=== PATIENT | male | born 1970 | race Caucasian/White ===

== ENCOUNTER 2017-04-07 01:43 | Day surgery (SDC) | payer OTHER ==
[~2017-04-07] VITALS: Ht 175.3 cm; Wt 133.1 kg
[2017-04-07] VITALS (11 sets, daily range): BP systolic 109–155; BP diastolic 56–96; PULSE 49–58; RESP 12–16; O2SAT 95–97
[~2017-04-07 01:43] MED LIST: LORA-302 PO; VARE0.5T PO
[2017-04-07] MEDS ORDERED: ASPI325T32 PO (09:07)
[2017-04-07 09:20] LABS: INR 0.94 ratio
[2017-04-07] MEDS ORDERED: 0.9% Sodium Chloride 1,000 ML IV ONE (09:25)
--- NOTE | 2017-04-07 09:28 | NUR ---
Admitted today as an outpatient for a heart angiogram to evaluate heart arteries and function for documented aortic stenosis/bi-cuspid aortic stenosis specifically.Dr Villatoro notified patient is here in [place] - family has a few questions prior to the procedure. NSB with no ectopy and no pain. Patient is here today with his , "Kailey" - both patient and are ready for today's procedure. Follow up scheduled with Dr Farr for a consult for aortic valve repair.
[2017-04-07] MEDS ORDERED: Heparin 1,000 Units/500 mL NS Premix IV ONE (09:51)
[2017-04-07] MEDS ORDERED: fentaNYL-PF 50 mCg/mL 2 mL Inj ONE (09:51)
[2017-04-07] MEDS ORDERED: Heparin 10,000 Unit/1,000 mL NS Premix IV ONE (09:51)
[2017-04-07] MEDS ORDERED: Nitroglycerin 50,000 mcg/250 mL D5W Premix IV ONE (10:01)
[2017-04-07] MEDS ORDERED: Verapamil 2.5 mg/mL 2 mL Inj ONE (10:01)
[2017-04-07] MEDS ORDERED: Heparin 1,000 Unit/mL 10 mL Inj ONE (10:01)
[2017-04-07] MEDS ORDERED: 0.9% Sodium Chloride 1,000 ML IV PRN (11:14)
[2017-04-07] MEDS ORDERED: 0.9% Sodium Chloride 250 ML IV PRN (11:14)
[2017-04-07] MEDS ORDERED: HYDROcodone-APAP 5-325 mg Tablet PO PRN (11:15)
[2017-04-07] MEDS ORDERED: Ondansetron 2 mg/mL 2 mL Inj IVPUSH PRN (11:15)
[2017-04-07] MEDS ORDERED: Atropine 1 mg/10 mL (Code) Syringe IVPUSH PRN (11:15)
--- NOTE | 2017-04-07 11:23 | PCM.CVCATH ---
Cardiac Cath Report Date of Service Apr 07, 2017 Primary Indication Severe bicuspid aortic stenosis with significant calcification and recent history of retinal arterial embolic event. Procedure 1. Selective coronary angiogram Vascular Access Right radial artery Procedure Details The patient was brought to the cardiac catheterization lab in the fasting state. Patient was laid supine on the cardiac catheterization table and the right forearm was prepped and draped in the usual sterile fashion. One percent Xylocaine was infiltrated over the right radial artery. Vascular access was then achieved under ultrasound guidance. Guide wire was used to advance the catheter through the sheath and up into aortic sinuses. After coronary angiography was completed, guide wire was advanced through the catheter ahead of the tip of the catheter and the guide wire along with the catheter were pulled together out of the sheath. Estimated blood loss: 5 mL Total fluoroscopy time: 6.4 minutes Total fluoroscopy dosage: 1294 mGy Total contrast: 55 mL Findings 1. Hemodynamics: The aortic systemic pressure was 126/77 mmHg. 2. Selective coronary angiography: A. Left main: There artery has no evidence of significant disease. It bifurcates into the left anterior descending and left circumflex arteries. B. Left anterior descending artery: The left anterior descending artery has no evidence of significant disease. It provides one large diagonal artery which has no evidence of significant disease. C. Left circumflex artery: This is a codominant artery. This artery has no evidence of significant disease. D. Right coronary artery: This is a codominant artery. This artery has no evidence of significant disease. Miscellaneous: The aortic valve is easily visualized due to significant calcification. Complications There were no periprocedural complications identified. Summary 1. Normal coronaries angiographically. 2. Significant calcification of aortic valve. Recommendations The patient has an appointment with Dr. Ezio Farr on April 17. copies to: Ezio Farr MD; River Quesada MD, Oscar J MD Apr 07, 2017 11:23
--- NOTE | 2017-04-07 15:07 | NUR ---
Post heart cath 2 hour recovery completed in [place]. TR band with 13 cc's of air removed over 35 minutes. No pain no hematoma. Reviewed of discharge instructions with and patient.
[2017-04-07] MEDS ORDERED: Sodium Chloride LOK Flush 10 mL Syringe IVFLUSH SCH (16:30)
== END 2017-04-07 23:59 | disposition home or self-care (01) ==
LOC: SOUO 01:43
PROVIDERS: ATTEND Internal Medicine Cardiovascular Disease
DX: Q23.0 Congenital stenosis of aortic valve (principal); I35.0 Nonrheumatic aortic (valve) stenosis; I10 Essential (primary) hypertension; E66.9 Obesity, unspecified; G45.3 Amaurosis fugax
CPT/HCPCS: 36415; 80048; 85610; 93005; 93454; 99152; 99153; C1729; C1769; C1894; J1644; J2250; J3010; J7030; Q9967

== ENCOUNTER → 2017-05-12 | Day surgery (SDC) | payer OTHER ==
[~2017-05-12] VITALS: Ht 180.3 cm; Wt 118.0 kg
[~2017-05-12] MED LIST changes: +0.9% Sodium Chloride 1,000 ML IV ONE; +0.9% Sodium Chloride 1,000 ML IV SCH; +ASPI-973 PO; +ASPI325T32 PO; +Atropine 1 mg/10 mL (Code) Syringe ONE; +HYDROcodone-APAP 5-325 mg Tablet PO PRN; +METO50TA3 PO; +Methohexital 10 mg/mL 50 mL Inj IV ONE; +Methohexital 10 mg/mL 50 mL Inj ONE; +NICO1PAT35 TD; +OXYC1TAB24 PO; +Ondansetron 2 mg/mL 2 mL Inj IVPUSH PRN; +WARF5TAB7 PO
[2017-05-12 10:40] VITALS: BP 99/62; PULSE 145; RESP 16; O2SAT 94
[2017-05-12 10:48] LABS: BASOPHILS % (AUTO) 0.5 % (0-3); EOSINOPHILS % (AUTO) 2.5 % (0-5); Mean Corpuscular Hemoglobin 29.2 pg (27.0-35.0); NEUTROPHILS % (AUTO) 66.3 % (40-74); Platelet Count 640 bil/L (150-400)
[2017-05-12 11:07] LABS: INR 2.02 ratio
[2017-05-12 11:26] VITALS: BP 107/85; PULSE 147; RESP 16; O2SAT 94
[2017-05-12 11:29] VITALS: BP 130/78; PULSE 95; RESP 16; O2SAT 95
[2017-05-12 11:32] VITALS: BP 116/78; PULSE 93; RESP 16; O2SAT 95
[2017-05-12 11:37] VITALS: BP 110/73; PULSE 92; RESP 16; O2SAT 98
--- NOTE | 2017-05-12 11:42 | PCM.PROC ---
Procedure Note Date of Service: May 12, 2017 Pre Procedure Diagnosis: Atrial flutter with RVR Post Procedure Diagnosis: Normal sinus rhythm Procedure: Electrical cardioversion Provider and Veneer Marker: Shemar Villatoro Jr, M.D. Brian, RN Indication for Procedure: Postoperative Atrial flutter with RVR Procedural Analgesia: Brevital 50 mg IV Versed 1 mg IV Procedure Details: A timeout was performing the correct patient procedure were verified. Patient was placed on continuous cardiac monitoring and continuous pulse oximetry. Supplemental oxygen was administered via nasal cannula. Defibrillator pads were placed in the anterior and posterior fashion. The pads were connected to a biphasic defibrillator which was placed in sync mode. After appropriate level of sedation was achieved, synchronize cardioversion was performed at 50 joules with access for conversion to sinus rhythm. Post Procedure Plan: 1 Continue with metoprolol tartrate 50 mg twice a day 2. Follow-up with me next week 3. Reduce metoprolol if patient becomes symptomatic hypotensive copies to: River Quesada MD, Oscar J MD May 12, 2017 11:42
[2017-05-12 11:46] VITALS: BP 106/64; PULSE 91; RESP 16; O2SAT 96
== END | disposition home or self-care (01) ==
LOC: SOUO 10:07
PROVIDERS: ATTEND Internal Medicine Cardiovascular Disease
DX: I48.92 Unspecified atrial flutter (principal); Z79.01 Long term (current) use of anticoagulants
CPT/HCPCS: 36415; 80048; 85025; 85610; 92960; 93005; 99152; J2250; J7030